=== PATIENT | male | born 1985 | race Caucasian/White ===

== ENCOUNTER 2017-04-30 21:17 | Emergency (ER) | payer OTHER ==
[2017-05-29] MEDS ORDERED: IBUPROFEN800 MG PO (08:47)
[2017-05-29] MEDS ORDERED: PERCOCET 5-3251 EACH PO (14:44)
[2017-05-29] MEDS ORDERED: ASPIR 8181 MG PO (14:45)
[2017-05-29] MEDS ORDERED: ZOFRAN4 MG PO (14:47)
[2017-05-29] MEDS ORDERED: STOOL SOFTENER250 MG PO (14:48)
== END 2017-04-30 22:20 | disposition home or self-care (01) ==
LOC: ER1 21:17
DX: S83.91XA Sprain of unspecified site of right knee, initial encounter (principal); X50.1XXA Overexertion from prolonged static or awkward postures, initial encounter
CPT/HCPCS: 73564; 96372; 99283; J1885

== ENCOUNTER → 2017-05-12 | Outpatient (CLI) | payer OTHER ==
[~2017-05-12] MED LIST: ASPIR 8181 MG PO; IBUPROFEN800 MG PO; PERCOCET 5-3251 EACH PO; STOOL SOFTENER250 MG PO; ZOFRAN4 MG PO
== END ==
LOC: KOH-I 08:45
DX: S83.511A Sprain of anterior cruciate ligament of right knee, initial encounter (principal); S83.231A Complex tear of medial meniscus, current injury, right knee, initial encounter; M21.961 Unspecified acquired deformity of right lower leg; M25.461 Effusion, right knee
CPT/HCPCS: 73721